=== PATIENT | male | born 1980 | race Caucasian/White ===

== ENCOUNTER 2018-10-09 19:41 | Emergency (ER) | payer SELFPAY ==
[~2018-10-09] VITALS: Ht 167.6 cm; Wt 80.9 kg
[~2018-10-09 19:41] MED LIST: HYDR-762 PO; IBUP800T48 PO; ONDA4TAB35 PO; TAMS-14 PO
[2018-10-09 19:50] VITALS: Ht 167.6 cm; Wt 80.9 kg
[2018-10-09] MEDS ORDERED: ONDANSETRON (ODT) 4 MG TAB ODT STA (20:07)
[2018-10-09] MEDS ORDERED: IBUP-1542 PO (20:17)
[2018-10-09] MEDS ORDERED: ONDA4TAB14 PO (20:17)
--- NOTE | 2018-10-09 20:17 | ERD ---
ER Documentation Chief Complaint Chief Complaint HEADACHE WITH N/V XTODAY HPI Patient is a 38-year-old male with no medical problems who presents with feelings of abdominal inflammation. He denies abdominal pain. He said that it started this morning after he drank coffee and a monster energy drink. He had vomiting and diarrhea which started today. He has no fevers. Upon review of old medical records this is the patient's fifth visit to the ER since 2011. He does not currently have a primary doctor. ROS All systems reviewed and are negative except as per history of present illness. Medications Home Meds Active Scripts Ondansetron (Ondansetron Odt) 4 Mg Tab.rapdis, 4 MG PO Q6H PRN for NAUSEA AND/OR VOMITING, #10 TAB Prov:COLEEN KIRKLAND MD 10/09/18 Ibuprofen* (Motrin*) 600 Mg Tab, 600 MG PO Q6H PRN for PAIN AND OR ELEVATED TEMP, #30 TAB Prov:COLEEN KIRKLAND MD 10/09/18 Ondansetron Hcl* (Zofran* ODT) 4 mg -ODT Tab.disper, 4 MG PO Q6 PRN for NAUSEA AND/OR VOMITING, #10 TAB Prov:TORO EDWARDS MD 02/24/15 Ibuprofen* (Motrin*) 800 Mg Tab, 800 MG PO Q6H PRN for PAIN AND OR ELEVATED TEMP, #30 TAB Prov:TORO EDWARDS MD 02/24/15 Tamsulosin Hcl* (Flomax*) 0.4 Mg Cap.er.24h, 0.4 MG PO QPM, #30 CAP Prov:TORO EDWARDS MD 02/24/15 Hydrocodone Bit-Acetaminophen* ([place]est[place]kill*) 10-325 Mg Tablet, 1 TAB PO Q6 PRN for PAIN, #20 TAB Prov:TORO EDWARDS MD 02/24/15 Allergies Allergies: Coded Allergies: No Known Allergy (Unverified , 02/24/15) PMhx/Soc Medical and Surgical Hx: pt denies Medical Hx, pt denies Surgical Hx History of Surgery: No Anesthesia Reaction: No Hx Neurological Disorder: No Hx Respiratory Disorders: No Hx Cardiac Disorders: No Hx Psychiatric Problems: No Hx Miscellaneous Medical Probl: Yes (KIDNEY STONE ) Hx Alcohol Use: Yes Hx Substance Use: No Hx Tobacco Use: Yes Smoking Status: Current every day smoker FmHx Family History: diabetes Physical Exam Vitals Vital Signs Date Temp Pulse Resp B/P (MAP) Pulse Ox O2 O2 Flow FiO2 Time Delivery Rate 10/09/18 98.0 96 21 144/82 98 Room Air 20:49 (102) 10/09/18 98.6 94 19 169/104 97 19:50 (125) Physical Exam Const: No acute distress Head: Atraumatic Eyes: Normal Conjunctiva ENT: Normal External Ears, Nose and Mouth. Neck: Full range of motion. No meningismus. Resp: Clear to auscultation bilaterally Cardio: Regular rate and rhythm, no murmurs Abd: Soft, non tender, non distended. Normal bowel sounds Skin: No petechiae or rashes Back: No midline or flank tenderness Ext: No cyanosis, or edema Neur: Awake and alert Psych: Normal Mood and Affect Results 24 hrs Current Medications Medications Dose Sig/Adria Start Time Status Last (Trade) Ordered Route PRN Stop Time Admin Dose Reason Admin Ibuprofen 800 mg ONCE ONCE 10/09/18 DC 10/09/18 (Motrin) PO 20:30 20:22 10/09/18 20:31 Ondansetron 4 mg ONCE STAT 10/09/18 DC 10/09/18 HCl (Zofran ODT 20:07 20:22 Odt) 10/09/18 20:08 Procedures/MDM EKG read by me: Rate/Rhythm: Regular rate and rhythm at a rate of 88 Intervals: Normal Impression: No evidence of ischemia or arrhythmia Smoking Cessation Therapy: Pt. was lectured for greater than 3 minutes on the health risks of continued smoking and the benefits of cessation. Patient is a 38-year-old male presents with feelings of abdominal inflammation as well as vomiting and diarrhea. He has no pain on exam. Vitals are normal. EKG was normal. I doubt acute appendicitis, cholecystitis, pancreatitis, or bowel obstruction. I believe outpatient management is appropriate but the patient will need close follow-up with the local clinics within 24 to 48 hours for evaluation. He will be given information for the local clinics. He will be given a prescription for ibuprofen and Zofran. Departure Diagnosis: Primary Impression: Vomiting and diarrhea Condition: Fair Patient Instructions: Self-Care for Vomiting and Diarrhea [facility] Usted se gutierrez hecho un examen mdico de control que le indica que no est en edel condicin que requiera tratamiento urgente en el Departamento de Emergencia. Un estudio ms profundo y el tratamiento de dinero condicin pueden esperar sin ningn riesgo hasta que usted sea atendida/o en el consultorio de dinero mdico o edel clnica. Es responsabilidad suya arreglar edel nohemy para el seguimiento del josé miguel. MANEJO DE CONDICIONES NO URGENTES EN EL FUTURO 1) Si usted tiene un mdico de atencin primaria: Usted debera llamar a dinero mdico de atencin primaria antes de venir al departamento de emergencia. Despus de las horas de consultorio, dinero doctor o dinero asociado/a est disponible por telfono. El mdico o enfermero de devendra en el servicio telefnico puede asesorarle por casey medio para atender el problema, o josé miguel contrario se puede programar edel nohemy. 2) Si usted no tiene un mdico de atencin primaria: Llame al mdico o clnica de referencia que aparece abajo reinaldo las horas de consultorio para hacer edel nohemy para que le vean. CLINICAS: [facility] [phone] [facility] [phone] [facility] [phone] [facility]. [facility] [phone] [facility]. [place] [phone] [facility]. [phone] [address] Additional Instructions: Llame al doctor MAANA y franki edel NOHEMY PARA [address]TRO DE [address]Dg[address] a la secretaria que nosotros le instruimos hacer esta nohemy.Avise o llame si dinero condicin se empeora antes de la nohemy. Regresa aqui si peor o no mejor. COLEEN KIRKLAND MD Oct 09, 2018 20:17
[2018-10-09] MEDS ORDERED: IBUPROFEN 800 MG TAB PO ONE (20:30)
[2018-10-09 20:49] VITALS: BP 144/82; PULSE 96; RESP 21
== END 2018-10-09 20:50 | disposition home or self-care (01) ==
LOC: E/R 19:41
DX: R11.10 Vomiting, unspecified (principal); F17.210 Nicotine dependence, cigarettes, uncomplicated; R19.7 Diarrhea, unspecified; R10.9 Unspecified abdominal pain
CPT/HCPCS: 93005